=== PATIENT | male | born 1955 | race Two or more races ===

== ENCOUNTER 2024-05-14 15:08 | Emergency (ER) | payer OTHER, SELFPAY ==
[2024-05-14 15:12] VITALS: BP 166/85; PULSE 58; RESP 16; O2SAT 99
--- NOTE | 2024-05-14 15:19 | EDNOTE_ITS ---
<Statement entered by Eve Escamilla MD - 05/15/24 07:39> As co-signing physician, I was present and available for consult prn. I concur with the plan and care as documented by the midlevel provider. ED General RME/HPI General Chief complaint: Syncope / Near Syncope Stated complaint: SYNCOPE Time Seen by Provider: 05/14/24 15:18 Arrival date/time: 05/14/24 15:08 RME / HPI RME / HPI narrative: 68-year-old male patient with significant history of diabetes mellitus, currently taking metformin and insulin, was brought in by EMS for evaluation after patient was found on the floor. When the EMS arrived patient was noted to be having a blood sugar of 36. Patient was given D10 and blood sugar went up to 156. Currently patient is denying any complaints no headache no neck pain no vomiting no diarrhea no fever. Patient last food intake was 9:00 this morning Related Data Allergies Allergy/AdvReac Type Severity Reaction Status Date / Time No Known Allergies Allergy Verified 10/23/23 18:59 Review of Systems Review of Systems Narrative Review of Systems: Review of system reviewed and within normal limits except mentioned in HPI ED Exam Narrative Physical exam: VITAL SIGNS: Reviewed. GENERAL APPEARANCE: Alert and interactive, follows commands, no acute distress, HEAD AND FACE: Non-traumatic. ENT: PERRL, pink conjunctivitis, eyelid no trauma, Mucous membrane moist. NECK: Supple, nontender, no nuchal rigidity. CHEST: No tenderness, no crepitus, no paradoxical movement, no retractions. LUNGS: Clear, well ventilated, symmetric, no rales, no wheezing, no ronchi, no stridor, good breath sounds bilaterally. HEART: Regular rate, regular rhythm, no murmur, no gallops. ABDOMEN: Soft, positive bowel sounds, nondistended, no guarding, nontender, no rebound, no masses, RECTAL: Deferred. GENITAL: Deferred. NEUROLOGICAL: Gross motor function intact sensory function intact, Appropriate for age. MUSCULOSKELETAL: low back nontender, full range of motion. EXTREMITIES: Nontender, full range of motion. SKIN: Color pink, dry, no rash, no lacerations, no abrasions, no contusions. LYMPHATICS: Deferred. Course Quality Measures none Orders Category Date Time Status Diet Regular Diet 05/14/24 Dinner Active CBC [CBC] Stat Lab 05/14/24 16:02 Completed CMP [Comprehensive Metabolic Panel] Stat Lab 05/14/24 16:02 Completed UA, C/S IF [Urinalysis, C/S if Indicated] Stat Lab 05/14/24 15:56 Completed Vital Signs Vital signs: Vital Signs Pulse Rate 58 L 05/14/24 15:12 Respiratory Rate 16 05/14/24 15:12 Blood Pressure 166/85 H 05/14/24 15:12 Pulse Oximetry (%) 99 05/14/24 15:12 Oxygen Delivery Method Room Air 05/14/24 15:12 MDM Patient data External records reviewed:: None Clinical information provided by:: patient Social determinants that could affect healthcare access:: none Patient has the following chronic illnesses:: Diabetes mellitus How is presenting disease/condition affected by chronic disease/condition?: c aused by Evaluation data The following diagnostics were reviewed and interpreted by me:: lab results Lab and/or radiology exams considered but not ordered:: None Interpretation Summary: Laboratory workup all came back unremarkable, latest blood sugar was noted to be 177 prior to discharge. Medications Medications considered but not ordered:: None Medication administrations:: None Consultations Consultation(s) initiated? (list below): No Diagnosis Differential Diagnosis ED Complaint MDM: Hypoglycemia, dehydration, poor p.o. intake Most likely diagnosis given after review of the tests above:: Hypoglycemia secondary to diabetes mellitus Admission Indicated Admission indicated?: not indicated Explain why admission is indicated or not indicated:: Stable for discharge Admission Request Was there a request for admission?: No Disposition Plan Disposition Plan: Discharge Discharge Attestation Discharge Attestation: The patient and all family members were given an opportunity to ask questions and understood the discharge instructions. Discharge instructions specifically effects, indications for sooner follow up or return to the emergency department, and the expected course of current diagnosis. Patient condition: Stable Medical Decision Making MDM Narrative MDM Narrative: 68-year-old male patient with significant history of diabetes mellitus, currently taking metformin and insulin, was brought in by EMS for evaluation after patient was found on the floor. When the EMS arrived patient was noted to be having a blood sugar of 36. Patient was given D10 and blood sugar went up to 156. Currently patient is denying any complaints no headache no neck pain no vomiting no diarrhea no fever. Patient last food intake was 9:00 this morning Laboratory workup came back unremarkable. Blood sugar was noted to be 177 prior to discharge. Patient is denying any complaints prior to discharge ambulatory Differential Diagnosis Differential Diagnosis: Hypoglycemia, dehydration, poor p.o. intake Lab Data 05/14/24 16:02 05/14/24 16:02 Labs: Lab Results 05/14/24 05/14/24 Range/Units 15:56 16:02 WBC 12.0 H (3.8-10.6) Thou/mm3 RBC 5.50 (4.50-5.90) Miln/mm3 Hgb 15.2 (13.5-16.0) g/dL Hct 44.6 (41.0-53.0) % MCV 81 (80-100) fL MCH 27.6 (25.0-35.0) pg MCHC 34.1 (31.0-37.0) g/dl RDW Std Deviation 41.7 (35.1-43.9) fL Plt Count 336 (140-440) Thou/mm3 Neut % (Auto) 80 (37-80) % Lymph % (Auto) 11 (10-50) % Alpine % (Auto) 7 (0-12) % Eos % (Auto) 1 (0-10) % Baso % (Auto) 1 (0-2.5) % Neut # (Auto) 9.6 H (1.8-7.7) Thou/mm3 Lymph # (Auto) 1.3 (1.0-4.8) Thou/mm3 Alpine # (Auto) 0.8 (0.0-0.8) Thou/mm3 Eos # (Auto) 0.1 (0.0-0.5) Thou/mm3 Baso # (Auto) 0.1 (0.0-0.2) Thou/mm3 Immature Gran # (Auto) 0.07 H (0.00-0.00) Thou/mm3 Absolute Nucleated RBC 0.00 (0.00-0.00) Thou/mm3 Immature Gran % 1 H (0-0) % Nucleated RBC % 0 (0) /100 WBC Sodium 139 (136-145) mMol/L Potassium 3.8 (3.4-5.1) mMol/L Chloride 101 (98-107) mMol/L Carbon Dioxide 29.0 (20.0-31.0) mMol/L Anion Gap 9 (7-16) BUN 14 (9-23) mg/dL Creatinine 1.0 (0.6-1.3) mg/dL Estim Creat Clear Calc 61.5 (>60) mL/min eGFR > 60 (60 - ) See Note BUN/Creatinine Ratio 14 (12-20) Ratio Glucose 106 (74-106) mg/dL Calculated Osmolality 278 (275-295) Calcium 9.5 (8.3-10.6) mg/dL Corrected Calcium 9.5 (8.5-10.1) mg/dL Total Bilirubin 0.4 (0.3-1.2) mg/dL AST 35 H (0-34) U/L ALT 29 (10-49) U/L Alkaline Phosphatase 74 (46-116) U/L Total Protein 7.4 (5.7-8.2) gm/dL Albumin 4.8 (3.4-4.8) gm/dL Globulin 2.6 (2.3-3.5) gm/dL Albumin/Globulin Ratio 1.8 (1.2-2.2) Ur Collection Type Clean Catch Urine Color Colorless A (Lt Yel-Yel) Urine Clarity Clear (Clear/Hazy) Urine pH 7.0 (5.0-7.0) Ur Specific Altus 1.011 (1.001-1.035) Urine Protein Negative (Neg - Trace) Urine Glucose (UA) 1+ A (Negative) Urine Ketones Negative (Negative) Urine Blood Negative (Negative) Urine Nitrite Negative (Negative) Urine Bilirubin Negative (Negative) Urine Urobilinogen (Auto) Negative (0.0-1.0) mg/dL Ur Leukocyte Esterase Negative (Negative) Urine RBC < 1 (0-3) /hpf Urine WBC < 1 (0-5) /hpf Ur Squamous Epith Cells 0 (0-5) /hpf Urine Bacteria None (None) Ur Culture Indicated? Not Indicated Discharge Plan Plan Patient Disposition: HOME (Self Care) Disposition Comment: Stable Prescriptions/Referrals Referrals: Javid Juan MD [Primary Care Provider] - In 1 week Problem List Clinical Impression: Hypoglycemia Patient/Caregiver Discharge Instructions Discharge Activity: activity as tolerated Education Materials: Hypoglycemia (Low Blood Sugar) Additional Instructions: Thank you for the opportunity for serving you today. You are stable for discharged . You are advised to: Follow-up with your PCP in 1 to 2 days Return to ED for worsening of symptoms Increase oral fluids Please check your blood sugar prior to giving yourself insulin Eat 3 meals a day with snacks in between Print Language: Palauan Stand Alone Forms: Lisbeth Award Info., Patient Portal Info Letter PA/[employer]ONT SERVICES AGENT Supervising Physician MUNIR/ANURADHA Supervising Physician: MD Andi
[2024-05-14 15:35] VITALS: PULSE 48; RESP 16; O2SAT 97; BMI 24.3
[2024-05-14 16:07] VITALS: BP 175/89; PULSE 68; RESP 17; TEMP 36.6; O2SAT 100
[2024-05-14 16:08] LABS: Collection Type, Urine Clean Catch; Squamous Epithelial Cell,Urine 0 /hpf (0-5)
[2024-05-14 16:09] LABS: Basophils # (Auto) 0.1 Thou/mm3 (0.0-0.2); Basophils % (Auto) 1 % (0-2.5); Eosinophils # (Auto) 0.1 Thou/mm3 (0.0-0.5); Eosinophils % (Auto) 1 % (0-10); Hematocrit 44.6 % (41.0-53.0); Hemoglobin 15.2 g/dL (13.5-16.0); Immature Granulocytes % (Auto) 1 % (0-0); Immature Granulocytes Auto 0.07 Thou/mm3 (0.00-0.00); Lymphocytes # (Auto) 1.3 Thou/mm3 (1.0-4.8); Lymphocytes % (Auto) 11 % (10-50); Mean Corpuscular HGB Conc 34.1 g/dl (31.0-37.0); Mean Corpuscular Hemoglobin 27.6 pg (25.0-35.0); Mean Corpuscular Volume 81 fL (80-100); Monocytes # (Auto) 0.8 Thou/mm3 (0.0-0.8); Monocytes % (Auto) 7 % (0-12); Neutrophils # (Auto) 9.6 Thou/mm3 (1.8-7.7); Neutrophils % (Auto) 80 % (37-80); Nucleated Red Blood Cell % 0 /100 WBC (0); Platelet Count 336 Thou/mm3 (140-440); RDW Standard Deviation 41.7 fL (35.1-43.9)
--- NOTE | 2024-05-14 16:11 | PC.NURSE ---
Bedside BS 102 at 1600, sandwich and juice provided.
[2024-05-14 16:20] LABS: Bilirubin,Urine Negative (Negative); Blood,Urine Negative (Negative); Clarity,Urine Clear (Clear/Hazy); Color,Urine Colorless (Lt Yel-Yel); Culture Indicated,Urine Not Indicated; Glucose, Urine 1+ (Negative); Ketones,Urine Negative (Negative); Leukocyte Esterase,Urine Negative (Negative); Nitrite,Urine Negative (Negative); Protein,Urine Negative (Neg - Trace); RBC,Urine < 1 /hpf (0-3); Specific Gravity,Urine 1.011 (1.001-1.035); Urobilinogen,Urine Negative mg/dL (0.0-1.0); WBC,Urine < 1 /hpf (0-5)
[2024-05-14 16:33] LABS: Alanine Aminotransferase 29 U/L (10-49); Albumin, Serum 4.8 gm/dL (3.4-4.8); Albumin/Globulin Ratio 1.8 (1.2-2.2); Alkaline Phosphatase 74 U/L (46-116); Anion Gap 9 (7-16); Aspartate Amino Transferase 35 U/L (0-34); BUN/Creatinine Ratio 14 Ratio (12-20); Bilirubin,Total 0.4 mg/dL (0.3-1.2); Blood Urea Nitrogen 14 mg/dL (9-23); Calcium 9.5 mg/dL (8.3-10.6); Calcium (Corrected) 9.5 mg/dL (8.5-10.1); Chloride 101 mMol/L (98-107); Estimated Creatinine Clearance 61.5 mL/min (>60); Globulin 2.6 gm/dL (2.3-3.5); Glucose 106 mg/dL (74-106); Osmolality,Calculated 278 (275-295); Potassium 3.8 mMol/L (3.4-5.1); Sodium 139 mMol/L (136-145); Total Protein 7.4 gm/dL (5.7-8.2); eGFR > 60 See Note
[2024-05-14 18:25] VITALS: BP 135/60; PULSE 70; RESP 16; TEMP 36.6; O2SAT 100
== END 2024-05-14 18:25 | disposition home or self-care (01) ==
PROVIDERS: Nurse Practitioner Family; Emergency Provider Emergency Medicine; PCP Family Medicine
DX: E11.649 Type 2 diabetes mellitus with hypoglycemia without coma (principal); Z79.4 Long term (current) use of insulin; Z79.84 Long term (current) use of oral hypoglycemic drugs
CPT/HCPCS: 36415; 80053; 81001; 85025; 99283

== ENCOUNTER → 2024-07-28 | Outpatient (CLI) | payer OTHER, SELFPAY ==
[2024-07-28 11:57] LABS: Glucose Estimated Average 312 mg/dL (80-131); Hemoglobin A1C 12.5 % Hgb (4.8-6.0)
[2024-07-28 12:14] LABS: Alanine Aminotransferase 38 U/L (10-49); Albumin, Serum 4.1 gm/dL (3.4-4.8); Alkaline Phosphatase 84 U/L (46-116); Anion Gap 8 (7-16); Aspartate Amino Transferase 25 U/L (0-34); BUN/Creatinine Ratio 14 Ratio (12-20); Bilirubin,Direct 0.2 mg/dL (0.0-0.3); Bilirubin,Total 0.7 mg/dL (0.3-1.2); Blood Urea Nitrogen 18 mg/dL (9-23); Calcium 9.6 mg/dL (8.3-10.6); Carbon Dioxide 29.8 mMol/L (20.0-31.0); Chloride 104 mMol/L (98-107); Cholesterol 158 mg/dL (132-200); Creatinine (Component) 1.3 mg/dL (0.6-1.3); Glucose 223 mg/dL (74-106); HDL Cholesterol 52 mg/dL (40-60); LDL Cholesterol,Calculated 92 mg/dL (0-130); Osmolality,Calculated 292 (275-295); Potassium 4.3 mMol/L (3.4-5.1); Sodium 142 mMol/L (136-145); Total Protein 6.5 gm/dL (5.7-8.2); Triglycerides 71 mg/dL (30-150); eGFR 59 See Note
[2024-07-28 12:39] LABS: Creatinine MALB Rnd Ur 63 mg/dL (30-125); Microalbumin Creat Ratio 8 mg/gCrea (<30); Microalbumin, Random Urine 5 mg/L (0-300)
== END | disposition home or self-care (01) ==
PROVIDERS: PCP Family Medicine; Referring Provider Family Medicine; Visit Provider Family Medicine
DX: E11.49 Type 2 diabetes mellitus with other diabetic neurological complication (principal); E78.5 Hyperlipidemia, unspecified
CPT/HCPCS: 36415; 80048; 80061; 80076; 82043; 82570; 83036

== ENCOUNTER → 2024-09-29 | Outpatient (CLI) | payer OTHER, SELFPAY ==
[2024-10-03 07:07] LABS: Fecal Globin Result NOT DETECTED (NOT DETECTED)
== END | disposition home or self-care (01) ==
PROVIDERS: PCP Family Medicine; Referring Provider Family Medicine; Visit Provider Family Medicine
DX: Z12.11 Encounter for screening for malignant neoplasm of colon (principal); Z12.12 Encounter for screening for malignant neoplasm of rectum
CPT/HCPCS: 82274; G0328

== ENCOUNTER → 2024-11-04 | Outpatient (CLI) | payer OTHER, SELFPAY ==
[2024-11-04 11:53] LABS: Anion Gap 10 (7-16); BUN/Creatinine Ratio 15 Ratio (12-20); Blood Urea Nitrogen 22 mg/dL (9-23); Calcium 9.0 mg/dL (8.3-10.6); Carbon Dioxide 29.3 mMol/L (20.0-31.0); Chloride 101 mMol/L (98-107); Creatinine (Component) 1.5 mg/dL (0.6-1.3); Glucose 377 mg/dL (74-106); Osmolality,Calculated 297 (275-295); Potassium 4.8 mMol/L (3.4-5.1); Sodium 140 mMol/L (136-145); eGFR 50 See Note
[2024-11-04 12:00] LABS: Glucose Estimated Average 355 mg/dL (80-131); Hemoglobin A1C > 14.0 % Hgb (4.8-6.0)
== END | disposition home or self-care (01) ==
LOC: COPL 10:21
PROVIDERS: PCP Family Medicine; Referring Provider Family Medicine; Visit Provider Family Medicine
DX: E11.65 Type 2 diabetes mellitus with hyperglycemia (principal)
CPT/HCPCS: 36415; 80048; 83036

== ENCOUNTER → 2025-01-08 | Outpatient (CLI) | payer OTHER, SELFPAY ==
--- NOTE | 2025-01-08 12:53 | XR_ITS ---
Examination:Right hip AP, lateral, AP pelvis 3 views Technique: Hip AP lateral, AP pelvis, 3 views Exam date and time:January 08, 2025 1323 hours INDICATIONS: Right hip pain months. FINDINGS: Moderate narrowing right hip joint No right hip fracture or dislocation Moderate narrowing left hip joint No left hip or pelvic fracture IMPRESSION: Bilateral moderate narrowing hip joints.
--- NOTE | 2025-01-08 12:53 | XR_ITS ---
Examination: Lumbar spine, 5 views Technique: Lumbar spine AP, lateral, coned lateral lower lumbar spine, bilateral obliques 5 views Exam date and time: January 08, 2025 1321 hours INDICATIONS: Low back pain beginning 3 weeks ago. FINDINGS: Moderate osteopenia. Diffuse moderate facet arthropathy. No lumbar fracture. Mild diffuse lumbar disc narrowing No spondylolisthesis Moderate lumbar spondylosis IMPRESSION: Moderate diffuse lumbar disc narrowing Moderate lumbar spondylosis.
== END | disposition home or self-care (01) ==
LOC: CDIM 12:34
PROVIDERS: PCP Family Medicine; Referring Provider Family Medicine; Visit Provider Family Medicine
DX: M48.061 Spinal stenosis, lumbar region without neurogenic claudication (principal); M47.816 Spondylosis without myelopathy or radiculopathy, lumbar region; M25.851 Other specified joint disorders, right hip
CPT/HCPCS: 72110; 73502

== ENCOUNTER 2025-03-12 10:14 | Outpatient (AMB) | payer OTHER, SELFPAY ==
--- NOTE | 2025-03-12 10:43 | ORTHONT_ITS ---
Vital signs 03/12/25 10:52 Height 1.65 m Height Method Stated Weight 62.199 kg Weight Measurement Method Standing Scale BMI 22.8 BP 146/70 H Blood Pressure Source Automatic Cuff Blood Pressure Location Left Upper Arm Position Sitting Respiration 18 Pulse 84 Pulse Source Monitor Temp 97.6 F Temp Source Temporal Artery Scan Pulse Oximetry (%) 97 Oxygen Delivery Method Room Air Med/Allergies Allergies & Medications Allergies No Known Allergies Allergy (Verified 03/12/25 10:52) Medication Reconciliation amlodipine 10 mg-benazepril 40 mg capsule 1 cap PO QDAY 03/12/25 [History Confirmed 03/12/25] atorvastatin 20 mg tablet (Lipitor) 20 mg PO QDAY 03/12/25 [History Confirmed 03/12/25] finasteride 5 mg tablet 5 mg PO QDAY 03/12/25 [History Confirmed 03/12/25] hydrochlorothiazide 12.5 mg capsule 12.5 mg PO QAM 03/12/25 [History Confirmed 03/12/25] hydrocodone 5 mg-acetaminophen 325 mg tablet 1 tab PO BID PRN 03/12/25 [History Confirmed 03/12/25] insulin glargine 100 unit/mL (3 mL) subcutaneous pen (Lantus Solostar U-100 Insulin) 15 unit subcut QAM 03/12/25 [History Confirmed 03/12/25] linagliptin 2.5 mg-metformin 1,000 mg tablet (Jentadueto) 1 tab PO BID 03/12/25 [History Confirmed 03/12/25] meloxicam 7.5 mg tablet 7.5 mg PO QDAY #45 tabs 03/12/25 [Rx] tamsulosin 0.4 mg capsule 0.4 mg PO QDAY 03/12/25 [History Confirmed 03/12/25] Exam Exam Patient is in no acute distress and is cooperative with the examination today. Breathing is nonlabored. In no respiratory distress. Patient has no paraspinal tenderness. Spinal deformity cannot be appreciated. The gait of the patient is nonantalgic Bilateral extremities were evaluated and demonstrates sensation intact to light touch. Palpable pedal pulses are present. No significant edema is present. Bilateral knees were examined and the patient has full strength and range of motion.. The left hip was examined. Patient was able to flex to 90 degrees, adduct to 30 degrees, abduct to 40 degrees, internally rotate to 20 degrees, and externally rotate to 20 degrees. Patient has a negative logroll. Stinchfield is negative. The patient is nontender diffusely to touch. The right hip was examined. Patient was able to flex to 90 degrees, adduct to 30 degrees, abduct to 40 degrees, internally rotate to 20 degrees, and externally rotate to 20 degrees. Patient has a negative logroll. The stinchfield is negative. Assessment and Plan Problem List (1) Bilateral hip joint arthritis: Status: Acute Plan: ASSESSMENT AND PLAN 1. Bilateral HIP pain: Bilateral hip pain is present, with the right knee being worse than the left. Hydrocodone has not provided relief, and no anti-inflammatories, exercises, or injections have been tried. Pain worsens with movement and is associated with numbness radiating from the glute to the toes on the right side. Groin pain and difficulty putting on shoes and socks are also reported. Mild to moderate hip arthritis and possible neuropathy or spinal issues may contribute to the pain. A prescription for meloxicam will be provided to manage inflammation. If there is no improvement, hip injections may be considered. Risks and benefits of meloxicam, including potential gastrointestinal issues, were discussed. The importance of adhering to the prescribed dosage and monitoring for side effects was emphasized. Lifestyle modifications such as avoiding activities that exa cerbate pain and incorporating gentle exercises were recommended. Referral to a physical therapist may be considered if symptoms persist. 2. Neuropathy: Tingling and numbness in the feet and toes upon waking, which improves with walking but returns upon sitting, suggest possible neuropathy or spinal issues. Further evaluation and management by a primary care physician are advised. Consultation with a primary care physician is recommended to explore potential causes and appropriate interventions. Discussion included the possibility of neuropathy or spinal involvement, and the need for further diagnostic testing or specialist referrals. 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 ([id number]) MA Intake Visit Data Collection New Patient or Established: New Patient (never been to [facility]) Reason for Visit:: BILATERAL HIP PAIN Seen by Clinical Staff ONLY (RN/MA): No Manager Labor Relations Required: Yes PCP or OBGYN visit in last 3 months: Yes Hx Now: No Do You Feel Safe at Home: Yes Authorities Contacted: N/A Questionairres Past Medical History Past Medical History Have you ever been diagnosed with any of the following: Cardiology Problems Hypercholesterolemia: Yes Congestive Heart Failure: No Hypertension: Yes Respiratory Problems Chronic Obstructive Pulmonary Disease (COPD): No Genital/Urinary Problems Renal Disease: No Benign Prostatic Hyperplasia: Yes Endocrine Problems Diabetes Mellitus Type 1: No Diabetes Mellitus Type 2: Yes Subjective Visit Visit for: new patient and hip (BILATERAL) Immunization / Flu Flu Vaccine in the Last 12 Months: No Flu Vaccine Exclusion Criteria: No Exclusion Criteria History of Present Illness Chief complaint: BILATERAL HIP PAIN HISTORY OF PRESENT ILLNESS I, Nathan Cruz, have obtained verbal consent from the patient, to be recorded during this encounter which may include, but not limited to, medical history, examination, treatment plans, and relevant health information.? Patient was informed that recording will be read and reviewed by myself before inclusion in the medical chart. The patient presents for evaluation of bilateral hip pain, right worse than left. He is accompanied by an aerial photograph interpreter. He has been experiencing bilateral hip pain for the past 2 months, with the right knee being more affected than the left. He reports numbness in the gluteal region radiating down to his toes on the right side. Additionally, he experiences groin pain and difficulty in putting on shoes and socks. He has not taken any anti-inflammatories, engaged in exercises, or received injections. 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 He recalls an incident at work where he fainted and fell, hitting a metal object with the side of his hip and back. He is uncertain if this incident could have exacerbated his symptoms or if it was the initial cause of his current condition. He was taking hydrocodone, but it does not help. He also reports morning numbness and tingling in his feet and toes, which persists until he starts walking. However, these symptoms recur upon sitting. Personal History Occupation: [employer] Pain Pain level (0-10): 10 Pain duration: COMES AND GOES Pain location: groin Pain quality: sharp, aching and tingling Pain timing: night, increases with activity and stairs Associated signs & symptoms: numbness Ambulatory data Ambulatory device: none Treatments Improvement with previous injections: No Improvement with PT: No Improvement with NSAIDS: no Review of Systems Review of Systems: All systems negative unless otherwise noted in HPI.
[2025-03-12 10:52] VITALS: BP 146/70; PULSE 84; RESP 18; TEMP 36.4; O2SAT 97; BMI 22.8
== END 2025-03-12 10:58 | disposition home or self-care (01) ==
LOC: HODSRG 10:14
PROVIDERS: PCP Family Medicine; Referring Provider Family Medicine; Supervising Provider Orthopaedic Surgery Adult Reconstructive Orthopaedic Surgery; Visit Provider Orthopaedic Surgery Adult Reconstructive Orthopaedic Surgery
DX: M16.0 Bilateral primary osteoarthritis of hip (principal); M25.552 Pain in left hip; M25.551 Pain in right hip; G62.9 Polyneuropathy, unspecified
CPT/HCPCS: 99204; G0463

== ENCOUNTER 2025-04-28 14:34 | Outpatient (AMB) | payer OTHER, SELFPAY ==
--- NOTE | 2025-04-28 15:02 | ORTHONT_ITS ---
Vital signs 04/28/25 15:05 Height 1.65 m Height Method Stated Weight 65.544 kg Weight Measurement Method Standing Scale BMI 24.0 BP 167/84 H Blood Pressure Source Automatic Cuff Blood Pressure Location Left Upper Arm Position Sitting Respiration 19 Pulse 69 Pulse Source Monitor Temp 97.8 F Temp Source Temporal Artery Scan Pulse Oximetry (%) 98 Oxygen Delivery Method Room Air Med/Allergies Allergies & Medications Allergies No Known Allergies Allergy (Verified 03/12/25 10:52) Medication Reconciliation amlodipine 10 mg-benazepril 40 mg capsule 1 cap PO QDAY 03/12/25 [History Confirmed 04/28/25] atorvastatin 20 mg tablet (Lipitor) 20 mg PO QDAY 03/12/25 [History Confirmed 04/28/25] finasteride 5 mg tablet 5 mg PO QDAY 03/12/25 [History Confirmed 04/28/25] hydrochlorothiazide 12.5 mg capsule 12.5 mg PO QAM 03/12/25 [History Confirmed 04/28/25] hydrocodone 5 mg-acetaminophen 325 mg tablet 1 tab PO BID PRN 03/12/25 [History Confirmed 04/28/25] insulin glargine 100 unit/mL (3 mL) subcutaneous pen (Lantus Solostar U-100 Insulin) 15 unit subcut QAM 03/12/25 [History Confirmed 04/28/25] linagliptin 2.5 mg-metformin 1,000 mg tablet (Jentadueto) 1 tab PO BID 03/12/25 [History Confirmed 04/28/25] meloxicam 7.5 mg tablet 7.5 mg PO QDAY #45 tabs 03/12/25 [Rx Confirmed 04/28/25] tamsulosin 0.4 mg capsule 0.4 mg PO QDAY 03/12/25 [History Confirmed 04/28/25] gabapentin 300 mg capsule 300 mg PO QHS #60 caps 04/28/25 [Rx] Exam Exam Patient is in no acute distress and is cooperative with the examination today. Breathing is nonlabored. In no respiratory distress. Patient has no paraspinal tenderness. Spinal deformity cannot be appreciated. The gait of the patient is nonantalgic Bilateral extremities were evaluated and demonstrates sensation intact to light touch. Palpable pedal pulses are present. No significant edema is present. Bilateral knees were examined and the patient has full strength and range of motion.. The left hip was examined. Patient was able to flex to 90 degrees, adduct to 30 degrees, abduct to 40 degrees, internally rotate to 20 degrees, and externally rotate to 20 degrees. Patient has a negative logroll. Stinchfield is negative. The patient is nontender diffusely to touch. The right hip was examined. Patient was able to flex to 90 degrees, adduct to 30 degrees, abduct to 40 degrees, internally rotate to 20 degrees, and externally rotate to 20 degrees. Patient has a negative logroll. The stinchfield is negative. X-rays of the bilateral hips demonstrates mild arthritis. Assessment and Plan Problem List (1) Bilateral hip joint arthritis: Status: Acute Plan: Patient is a 69-year-old male with mild to moderate bilateral hip arthritis. He has a lot of pain that starts in his back and radiates down to his toes. There is associated numbness and tingling. We discussed with him that this is unlikely to be from his hips and is most likely from his spine. We Will get an MRI of his spine to confirm this. He has no pain with logroll and has a benign hip clinical examination Advanced Care Planning Discussion Advance care planning discussed with:: patient Office Procedures GNS Level of Care Nursing/Assessment Patient Status: Established Patient Nursing Assessment/Reassesment: Medication Reconciliation, Update PMH in EMR and Vital Signs Coordination of Care: Complex Care and Chronic Disease 1-5, Education Complex Pt/Fam, Consent,records obtained, informed consent, Results/Orders obtained and Staff clarify orders Established Patient Charge Established Patient Point Assignment: 95 Established Patient Point Charge: EP Level 3 (80-115) MA Intake Visit Data Collection New Patient or Established: Established Patient (seen at [facility] within 3 years) Reason for Visit:: BILATERAL HIP PAIN Seen by Clinical Staff ONLY (RN/MA): No Medical Technologist Chief Required: Yes PCP or OBGYN visit in last 3 months: Yes Hx Now: No Do You Feel Safe at Home: Yes Authorities Contacted: N/A Questionairres Past Medical History Past Medical History Have you ever been diagnosed with any of the following: Cardiology Problems Hypercholesterolemia: Yes Congestive Heart Failure: No Hypertension: Yes Respiratory Problems Chronic Obstructive Pulmonary Disease (COPD): No Genital/Urinary Problems Renal Disease: No Benign Prostatic Hyperplasia: Yes Endocrine Problems Diabetes Mellitus Type 1: No Diabetes Mellitus Type 2: Yes Subjective Visit Visit for: follow up visit and hip Immunization / Flu Flu Vaccine in the Last 12 Months: No Flu Vaccine Exclusion Criteria: No Exclusion Criteria History of Present Illness Chief complaint: BILATERAL HIP PAIN HISTORY OF PRESENT ILLNESS I, Nathan Cruz, have obtained verbal consent from the patient, to be recorded during this encounter which may include, but not limited to, medical history, examination, treatment plans, and relevant health information.? Patient was informed that recording will be read and reviewed by myself before inclusion in the medical chart. The patient presents for evaluation of bilateral hip pain, right worse than left. He is accompanied by an computer operations specialist. He has been experiencing bilateral hip pain for the past 2 months, with the right knee being more affected than the left. He reports numbness in the gluteal region radiating down to his toes on the right side. Additionally, he experiences groin pain and difficulty in putting on shoes and socks. He has not taken any anti-inflammatories, engaged in exercises, or received injections. 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 He recalls an incident at work where he fainted and fell, hitting a metal object with the side of his hip and back. He is uncertain if this incident could have exacerbated his symptoms or if it was the initial cause of his current condition. He was taking hydrocodone, but it does not help. He also reports morning numbness and tingling in his feet and toes, which persists until he starts walking. However, these symptoms recur upon sitting. Personal History Occupation: [employer] Pain Pain level (0-10): 10 Pain duration: COMES AND GOES Pain location: groin Pain quality: sharp, aching and tingling Pain timing: night, increases with activity and stairs Associated signs & symptoms: numbness Ambulatory data Ambulatory device: none Treatments Improvement with previous injections: No Improvement with PT: No Improvement with NSAIDS: no Review of Systems Review of Systems: All systems negative unless otherwise noted in HPI.
[2025-04-28 15:05] VITALS: BP 167/84; PULSE 69; RESP 19; TEMP 36.6; O2SAT 98; BMI 24.0
== END 2025-04-28 15:40 | disposition home or self-care (01) ==
LOC: HODSRG 14:34
PROVIDERS: PCP Family Medicine; Referring Provider Family Medicine; Supervising Provider Orthopaedic Surgery Adult Reconstructive Orthopaedic Surgery; Visit Provider Orthopaedic Surgery Adult Reconstructive Orthopaedic Surgery
DX: M16.0 Bilateral primary osteoarthritis of hip (principal); M25.552 Pain in left hip; M25.551 Pain in right hip; I10 Essential (primary) hypertension; E11.9 Type 2 diabetes mellitus without complications; Z79.4 Long term (current) use of insulin
CPT/HCPCS: 99213; G0463